=== PATIENT | male | born 1965 | race Asian ===

== ENCOUNTER 2017-02-25 08:03 | Emergency (ER) | payer MEDICAID ==
[~2017-02-25] VITALS: Ht 182.9 cm; Wt 101.0 kg
[~2017-02-25 08:03] MED LIST: ASPI-1035 PO; ATOR20TA PO; CELL5 PO; CHOL100026 PO; COREG PO; FAMO-134 PO; FISH OIL PO; NIFE60TA35 PO; P20 PO
[2017-02-25] MEDS ORDERED: LIDOCAINE HCL 1% 20ML VIAL (Pyxis) INJ INFIL ONE (10:15)
[2017-02-25 12:28] VITALS: BP 134/81
== END 2017-02-25 12:33 | disposition home or self-care (01) ==
LOC: ER 08:18
DX: T82.49XA Other complication of vascular dialysis catheter, initial encounter (principal); R07.89 Other chest pain; I13.10 Hypertensive heart and chronic kidney disease without heart failure, with stage 1 through stage 4 chronic kidney disease, or unspecified chronic kidney disease; N18.9 Chronic kidney disease, unspecified; J44.9 Chronic obstructive pulmonary disease, unspecified; E78.00 Pure hypercholesterolemia, unspecified; Z79.82 Long term (current) use of aspirin; Z79.899 Other long term (current) drug therapy; Z99.2 Dependence on renal dialysis
CPT/HCPCS: 71010; 93005; 99284; J3490; X7700; Z7610; 99283

== ENCOUNTER 2017-03-21 18:49 | Emergency (ER) | payer MEDICAID ==
[~2017-03-21] VITALS: Ht 182.9 cm; Wt 100.0 kg
[2017-03-21] MEDS ORDERED: ONDANSETRON HCL 4MG/2ML VIAL IV STA (21:43)
[2017-03-21] MEDS ORDERED: MORPHINE SULFATE 4 MG/ML CPJ (NOT FOR IM USE) IV STA (21:43)
[2017-03-21 22:05] LABS: BASOPHILS % 0.4 % (0.0-2.0); HEMOGLOBIN. 15.3 g/dL (14.0-18.0); LYMPHOCYTES % 13.9 % (20.0-50.0); MEAN CORPUSCULAR HGB CONC 31.9 g/dL (31.0-37.0); MEAN CORPUSCULAR VOLUME 84.5 fL (80.0-94.0); MEAN PLATELET VOLUME 7.7 fl (7.4-10.4); MONOCYTES % 11.2 % (2.0-8.0); NEUTROPHILS % 72.5 % (40.0-76.0); PLATELET 198 x1000/uL (130-400); RED BLOOD CELL COUNT 5.68 mill/uL (4.7-6.1); RED CELL DISTRIBUTION WIDTH 17.2 % (11.6-14.6); WHITE BLOOD COUNT 12.1 x1000/uL (4.5-11.0)
[2017-03-21 22:07] LABS: CHLORIDE 100 mEq/L (98-107); INDEX HEMOLYSI 1 (1-3); INDEX ICTERIC 1 (1-4); INDEX LIPEMIC 1 (1-3)
[2017-03-21 22:09] LABS: PROTHROMBIN TIME 10.5 sec
[2017-03-21 22:16] LABS: ALANINE AMINOTRANSFERASE 39 IU/L (13-61); ALBUMIN 3.3 g/dL (3.4-5.0); ANION GAP 15; CALCIUM 9.3 mg/dL (8.5-10.1); CARBON DIOXIDE 29 mEq/L (21-32); UREA NITROGEN BLOOD 18 mg/dL (7-21); URIC ACID 5.6 mg/dL (2.6-7.2); eGFR 9 mL/min (>60)
[2017-03-21] MEDS ORDERED: PREDNISONE 20MG TABLET PO ONE (23:15)
[2017-03-21 23:30] VITALS: BP 129/83
== END 2017-03-22 02:48 | disposition home or self-care (01) ==
LOC: ER 18:50
DX: M13.0 Polyarthritis, unspecified (principal); I12.0 Hypertensive chronic kidney disease with stage 5 chronic kidney disease or end stage renal disease; N18.6 End stage renal disease; Z99.2 Dependence on renal dialysis; Z79.82 Long term (current) use of aspirin; Z79.899 Other long term (current) drug therapy
CPT/HCPCS: 36415; 73080; 73110; 80053; 83605; 84550; 85025; 85610; 85651; 86140; 93971; 96374; 96375; 99285; J2270; J2405; J7512; Z7610

== ENCOUNTER 2017-04-05 19:34 | Emergency (ER) | payer MEDICAID ==
[~2017-04-05] VITALS: Ht 182.9 cm; Wt 100.0 kg
[2017-04-05 22:54] LABS: BASOPHILS % 0.6 % (0.0-2.0); EOSINOPHILS % 3.4 % (0.0-5.0); HEMATOCRIT. 44.2 % (42.0-52.0); LYMPHOCYTES % 19.5 % (20.0-50.0); MEAN CORPUSCULAR HGB CONC 31.6 g/dL (31.0-37.0); MEAN CORPUSCULAR VOLUME 82.4 fL (80.0-94.0); MEAN PLATELET VOLUME 8.2 fl (7.4-10.4); MONOCYTES % 9.4 % (2.0-8.0); NEUTROPHILS % 67.1 % (40.0-76.0); PLATELET 215 x1000/uL (130-400); RED BLOOD CELL COUNT 5.37 mill/uL (4.7-6.1); RED CELL DISTRIBUTION WIDTH 16.9 % (11.6-14.6); WHITE BLOOD COUNT 11.2 x1000/uL (4.5-11.0)
[2017-04-05 22:58] LABS: CHLORIDE 105 mEq/L (98-107); INDEX HEMOLYSI 1 (1-3); INDEX ICTERIC 1 (1-4); INDEX LIPEMIC 1 (1-3)
[2017-04-05 23:07] LABS: ALANINE AMINOTRANSFERASE 31 IU/L (13-61); ALBUMIN 3.1 g/dL (3.4-5.0); ANION GAP 12; CALCIUM 8.6 mg/dL (8.5-10.1); CARBON DIOXIDE 27 mEq/L (21-32); UREA NITROGEN BLOOD 41 mg/dL (7-21); eGFR 8 mL/min (>60)
[2017-04-05 23:14] LABS: INR 0.9; PARTIAL THROMBOPLASTIN TIME 28.1 sec (24.0-34.0); PROTHROMBIN TIME 9.9 sec
[2017-04-06 00:17] VITALS: BP 130/80
== END 2017-04-06 00:22 | disposition home or self-care (01) ==
LOC: ER 19:47
DX: T82.49XA Other complication of vascular dialysis catheter, initial encounter (principal); I12.9 Hypertensive chronic kidney disease with stage 1 through stage 4 chronic kidney disease, or unspecified chronic kidney disease; N18.9 Chronic kidney disease, unspecified; Z79.82 Long term (current) use of aspirin; Z99.2 Dependence on renal dialysis; X58.XXXA Exposure to other specified factors, initial encounter; Y93.89 Activity, other specified; Y99.8 Other external cause status; Y92.89 Other specified places as the place of occurrence of the external cause
CPT/HCPCS: 36415; 71010; 80053; 85025; 85610; 85730; 99285; Z7610

== ENCOUNTER 2017-10-18 07:31 | Emergency (ER) | payer MEDICAID ==
[~2017-10-18] VITALS: Ht 182.9 cm; Wt 93.0 kg
[~2017-10-18 07:31] MED LIST changes: -ASPI-1035 PO; +ASPI-1159 PO; -CHOL100026 PO; +CHOL100044 PO
[2017-10-18 09:11] LABS: PROTHROMBIN TIME 10.2 sec (9.4-11.6)
[2017-10-18] MEDS ORDERED: SODIUM BICARBONATE 4% (2.4MEQ) 5ML VIAL IV ONE (09:59)
[2017-10-18] MEDS ORDERED: LIDOCAINE HCL 1% 20ML VIAL (Pyxis) INJ ONE (09:59)
[2017-10-18 11:51] VITALS: BP 138/84
== END 2017-10-18 11:53 | disposition home or self-care (01) ==
LOC: ER 08:02
DX: Z45.2 Encounter for adjustment and management of vascular access device (principal); I12.0 Hypertensive chronic kidney disease with stage 5 chronic kidney disease or end stage renal disease; N18.6 End stage renal disease; Z99.2 Dependence on renal dialysis; Z79.82 Long term (current) use of aspirin
CPT/HCPCS: 36415; 36589; 85610; 99283; J3490; Z7610

== ENCOUNTER 2019-11-19 19:41 | Emergency (ER) | payer MEDICAID ==
[~2019-11-19] VITALS: Ht 182.9 cm; Wt 98.0 kg
[~2019-11-19 19:41] MED LIST changes: -ASPI-1159 PO; +ASPI-1393 PO; -CELL5 PO; -NIFE60TA35 PO; -P20 PO
[2019-11-19] MEDS ORDERED: SODIUM CHLORIDE 0.9% 1000ML BAG (SEPSIS BOLUS) IV ONE (20:45)
[2019-11-19] MEDS ORDERED: LEVOFLOXACIN 750MG PREMIX 150 ML IV ONE (20:45)
[2019-11-19] MEDS ORDERED: ACETAMINOPHEN 650MG/20.3ML UDC PO ONE (21:00)
[2019-11-19] MEDS ORDERED: ONDANSETRON HCL 4MG/2ML INJ IV ONE (21:00)
[2019-11-19 22:00] LABS: BASOPHILS % 0.2 % (0.0-2.0); HEMOGLOBIN. 9.2 g/dL (14.0-18.0); LYMPHOCYTES % 7.4 % (20.0-50.0); MEAN CORPUSCULAR HEMOGLOBIN 28.1 pg (28.0-32.0); MEAN PLATELET VOLUME 8.9 fl (7.4-10.4); MONOCYTES % 3.8 % (2.0-8.0); NEUTROPHILS % 88.6 % (40.0-76.0); PLATELET 94 x1000/uL (130-400); RED BLOOD CELL COUNT 3.26 mill/uL (4.7-6.1); RED CELL DISTRIBUTION WIDTH 13.8 % (11.6-14.6)
[2019-11-19 22:06] LABS: CHLORIDE 99 mEq/L (98-107); INR 1.4; PROTHROMBIN TIME 14.3 sec (9.6-11.0)
[2019-11-19 22:13] LABS: BG BILEVEL POS AIRWAY PRESSURE 15/5; BG CARBOXYHEMOGLOBIN 0.3 % (0.5-1.5); BG DEOXYHEMOGLOBIN 5.8 % (0.0-5.0); BG FRACTION INSPIRED OXYGEN 50; BG HCO3 ACT 24.1 mmol/L (22.0-26.0); BG METHEMOGLOBIN 0.3 % (0.0-1.5); BG OXYGEN SATURATION 94.2 % (92.0-98.5); BG OXYHEMOGLOBIN 93.6 % (94.0-97.0); BG PCO2 32.9 mmHg (35.0-45.0); BG PH 7.483 (7.350-7.450); BG PO2 74.2 mmHg (75.0-100.0); BG SAMPLE SITE RIGHT RADIAL; BG TOTAL HEMOGLOBIN 9.8 g/dL (12.0-18.0); BG VENT MODE MASK - BIPAP; BG VENT RATE 12 set
[2019-11-19] MEDS ORDERED: HEPARIN 5000 UNITS/ML VIAL IV NR (22:45)
[2019-11-19] MEDS ORDERED: ASPIRIN 81MG TABLET PO NR (22:45)
[2019-11-19 23:00] VITALS: BP 98/54
== END 2019-11-20 00:08 | disposition short-term general hospital (02) ==
LOC: ER 19:41 → CANBEDREQ 11-20 01:33
DX: I21.3 ST elevation (STEMI) myocardial infarction of unspecified site (principal); J96.90 Respiratory failure, unspecified, unspecified whether with hypoxia or hypercapnia; R50.9 Fever, unspecified; R74.0 Nonspecific elevation of levels of transaminase and lactic acid dehydrogenase [LDH]; J81.1 Chronic pulmonary edema; E78.00 Pure hypercholesterolemia, unspecified; D64.9 Anemia, unspecified; I12.0 Hypertensive chronic kidney disease with stage 5 chronic kidney disease or end stage renal disease; E11.22 Type 2 diabetes mellitus with diabetic chronic kidney disease; N18.6 End stage renal disease; Z99.2 Dependence on renal dialysis; Z79.82 Long term (current) use of aspirin
CPT/HCPCS: 36415; 36600; 71045; 80053; 82375; 82805; 83605; 83880; 84145; 84484; 85025; 85610; 87040; 93005; 94660; 96365; 96366; 96375; 99291; J1644; J1956; J2405; J7030; Z7610

== ENCOUNTER 2022-10-08 10:16 | Inpatient (IN) | payer MEDICAID ==
[~2022-10-08] VITALS: Ht 182.9 cm; Wt 80.1 kg
[~2022-10-08 10:16] MED LIST changes: -ASPI-1393 PO; +ASPI-1497 PO
[2022-10-08] MEDS ORDERED: SODIUM CHLORIDE 0.9% 1000ML BAG (SEPSIS BOLUS) IV ONE (11:30)
[2022-10-08] MEDS ORDERED: ACETAMINOPHEN 325MG TABLET PO ONE (11:30)
[2022-10-08] MEDS ORDERED: VANCOMYCIN 1G PREMIX 200 ML IV ONE (11:30)
[2022-10-08] MEDS ORDERED: PIPERACILLIN/TAZ 3.375G PREMIX 50 ML IV ONE (11:30)
[2022-10-08] MEDS ORDERED: OSELTAMIVIR 75MG CAPSULE PO ONE (11:30)
[2022-10-08 11:46] LABS: BG BASE EXCESS 4.6 mmol/L (-2.0-2.0); BG CARBOXYHEMOGLOBIN 0.3 % (0.5-1.5); BG DEOXYHEMOGLOBIN 1.7 % (0.0-5.0); BG FRACTION INSPIRED OXYGEN 100; BG HCO3 ACT 28.9 mmol/L (22.0-26.0); BG METHEMOGLOBIN 0.7 % (0.0-1.5); BG OXYGEN SATURATION 98.3 % (92.0-98.5); BG OXYHEMOGLOBIN 97.3 % (94.0-97.0); BG PCO2 41.7 mmHg (35.0-45.0); BG PH 7.458 (7.350-7.450); BG PO2 151.6 mmHg (75.0-100.0); BG SAMPLE SITE RIGHT BRACHIAL; BG TOTAL HEMOGLOBIN 9.5 g/dL (12.0-18.0); BG VENT MODE MASK - NRB
[2022-10-08 12:10] LABS: CHLORIDE 96 mEq/L (98-107)
[2022-10-08 12:16] LABS: BASOPHILS % 0.6 % (0.0-2.0); EOSINOPHILS % 1.9 % (0.0-5.0); HEMATOCRIT. 27.5 % (42.0-52.0); LYMPHOCYTES % 7.9 % (20.0-50.0); MEAN CORPUSCULAR HEMOGLOBIN 28.4 pg (28.0-32.0); MEAN CORPUSCULAR VOLUME 86.6 fL (80.0-94.0); MONOCYTES % 8.5 % (2.0-8.0); NEUTROPHILS % 81.1 % (40.0-76.0); PLATELET 72 x1000/uL (130-400); RED BLOOD CELL COUNT 3.17 mill/uL (4.7-6.1); RED CELL DISTRIBUTION WIDTH 15.4 % (11.6-14.6)
[2022-10-08 12:19] LABS: INR 1.1; PROTHROMBIN TIME 11.9 sec (9.6-11.0)
[2022-10-08] MEDS ORDERED: ASPIRIN 81MG TABLET PO ONE (13:00)
[2022-10-08] MEDS ORDERED: ASPIRIN 81MG TABLET PO NR (13:00)
[2022-10-08] MEDS ORDERED: DEXAMETHASONE 10 MG/ML VIAL IV ONE (15:30)
[2022-10-08] MEDS ORDERED: DEXAMETHASONE 10 MG/ML VIAL IV NR (15:30)
[2022-10-08] MEDS ORDERED: CEFTRIAXONE 1 G PREMIX 50 ML IV SCH ×2 (16:00→18:30)
[2022-10-08 17:30] VITALS: BP 120/61
[2022-10-08 18:00] VITALS: BP 120/61
[2022-10-08] MEDS ORDERED: AZITHROMYCIN 500MG/250ML 250 ML IV SCH (18:30)
[2022-10-08 20:00] VITALS: BP 101/52
[2022-10-08] MEDS ORDERED: AZITHROMYCIN 500MG in DEXTROSE 5% WATER 250ML IV SCH (20:00)
[2022-10-08] MEDS ORDERED: HEPARIN 5000 UNITS/ML VIAL SUBCUT SCH (21:00)
[2022-10-08] MEDS: DOXYCYCLINE HYCLATE 100MG CAPSULE PO SCH (22:22)
[2022-10-09] VITALS: BP 102/46
[2022-10-09 04:00] VITALS: BP 119/61
[2022-10-09 05:29] LABS: MEAN CORPUSCULAR HEMOGLOBIN 28.3 pg (28.0-32.0); MEAN CORPUSCULAR VOLUME 85.1 fL (80.0-94.0); PLATELET 77 x1000/uL (130-400); RED BLOOD CELL COUNT 3.18 mill/uL (4.7-6.1); RED CELL DISTRIBUTION WIDTH 15.1 % (11.6-14.6)
[2022-10-09] MEDS ORDERED: CALC667T6 MT (07:48)
[2022-10-09] MEDS ORDERED: LOSA25TA26 MT (07:48)
[2022-10-09] MEDS ORDERED: NIFE20CA MT (07:48)
[2022-10-09 08:00] VITALS: BP 128/65
[2022-10-09 08:15] LABS: CHLORIDE 100 mEq/L (98-107)
[2022-10-09] MEDS: DOXYCYCLINE HYCLATE 100MG CAPSULE PO SCH ×2 (08:41→16:28)
[2022-10-09] MEDS: CEFTRIAXONE 1,000 MG in DEXTROSE 5% WATER 50 ML IV SCH (08:41)
[2022-10-09 11:01] LABS: PLATELET ESTIMATE DECREASED
[2022-10-09 12:00] VITALS: BP 133/66
[2022-10-09 16:00] VITALS: BP 155/68
[2022-10-09] MEDS: GUAIFENESIN 200MG/10ML SUGAR FREE UDC PO PRN (16:28)
[2022-10-09] MEDS: ACETAMINOPHEN 325MG TABLET PO PRN (17:44)
[2022-10-09 20:00] VITALS: BP 154/70
[2022-10-09] MEDS ORDERED: INFLUENZA VACCINE 05/PF 0.5 ML SYRINGE IM ONE (21:00)
[2022-10-09] MEDS ORDERED: PNEUMOCOCCAL 23-VAL P-SAC VAC 0.5 ML IM ONE (21:00)
[2022-10-09] MEDS: DEXAMETHASONE 6MG TABLET PO SCH (21:16)
[2022-10-10] VITALS (18 sets, daily range): BP systolic 115–179; BP diastolic 63–83
[2022-10-10] MEDS: GUAIFENESIN 200MG/10ML SUGAR FREE UDC PO PRN ×3 (01:32→18:43)
[2022-10-10] MEDS: CLONIDINE 0.2MG TABLET PO PRN ×2 (03:06→21:17)
[2022-10-10] MEDS: CEFTRIAXONE 1,000 MG in DEXTROSE 5% WATER 50 ML IV SCH (08:59)
[2022-10-10] MEDS: DOXYCYCLINE HYCLATE 100MG CAPSULE PO SCH ×2 (09:00→17:00)
[2022-10-10] MEDS: DEXAMETHASONE 6MG TABLET PO SCH (09:01)
[2022-10-10] MEDS: EPOETIN ALFA-EPBX 4,000 UNIT/ML VIAL SUBCUT SCH (21:17)
[2022-10-10] MEDS: GUAIFENESIN-DM 200MG-20MG/10ML UDC PO PRN (22:56)
[2022-10-11] VITALS: BP 171/71
[2022-10-11] MEDS: CLONIDINE 0.2MG TABLET PO PRN (01:03)
[2022-10-11 04:00] VITALS: BP 155/67
[2022-10-11] MEDS: GUAIFENESIN-DM 200MG-20MG/10ML UDC PO PRN ×5 (04:11→22:47)
[2022-10-11] MEDS: DEXAMETHASONE 6MG TABLET PO SCH (07:35)
[2022-10-11] MEDS: BENZONATATE 100MG CAPSULE PO PRN ×2 (07:35→16:00)
[2022-10-11] MEDS: CEFTRIAXONE 1,000 MG in DEXTROSE 5% WATER 50 ML IV SCH (07:35)
[2022-10-11] MEDS: DOXYCYCLINE HYCLATE 100MG CAPSULE PO SCH ×2 (07:35→16:02)
[2022-10-11] MEDS: ALBUTEROL 6.7GM HFA INHALER ORI PRN ×2 (07:36→14:07)
[2022-10-11 08:00] VITALS: BP 160/63
[2022-10-11] MEDS ORDERED: NIFEDIPINE XL 30MG TAB PO SCH (10:00)
[2022-10-11] MEDS: ACETAMINOPHEN 325MG TABLET PO PRN ×2 (10:04→17:45)
[2022-10-11] MEDS: LOSARTAN POTASSIUM 25 MG TABLET PO SCH (10:04)
[2022-10-11 12:00] VITALS: BP 148/64
[2022-10-11 16:00] VITALS: BP 133/55
[2022-10-11 20:00] VITALS: BP 157/55
[2022-10-11 23:09] LABS: HEPATITIS B SURFACE ANTIGEN NEGATIVE
[2022-10-12] VITALS (10 sets, daily range): BP systolic 123–165; BP diastolic 54–88
[2022-10-12] MEDS: BENZONATATE 100MG CAPSULE PO PRN ×3 (01:12→21:36)
[2022-10-12] MEDS: GUAIFENESIN-DM 200MG-20MG/10ML UDC PO PRN ×2 (03:42→09:04)
[2022-10-12] MEDS: NIFEDIPINE XL 60MG TAB PO SCH ×2 (08:59→16:14)
[2022-10-12] MEDS: LOSARTAN POTASSIUM 25 MG TABLET PO SCH ×2 (08:59→16:14)
[2022-10-12] MEDS: CEFTRIAXONE 1,000 MG in DEXTROSE 5% WATER 50 ML IV SCH (09:03)
[2022-10-12] MEDS: DEXAMETHASONE 6MG TABLET PO SCH (09:04)
[2022-10-12] MEDS: DOXYCYCLINE HYCLATE 100MG CAPSULE PO SCH ×2 (09:04→16:14)
[2022-10-12] MEDS: ALBUTEROL 6.7GM HFA INHALER ORI PRN ×2 (09:04→16:18)
[2022-10-12] MEDS: GUAIFENESIN/CODEINE 200-20MG/10ML UDC PO PRN ×2 (16:14→22:53)
[2022-10-12] MEDS: EPOETIN ALFA-EPBX 4,000 UNIT/ML VIAL SUBCUT SCH (22:53)
[2022-10-13] VITALS: BP 116/55
[2022-10-13 04:00] VITALS: BP 113/45
[2022-10-13] MEDS: GUAIFENESIN/CODEINE 200-20MG/10ML UDC PO PRN ×2 (05:56→21:31)
[2022-10-13] MEDS: DOXYCYCLINE HYCLATE 100MG CAPSULE PO SCH ×2 (08:55→17:00)
[2022-10-13] MEDS: DEXAMETHASONE 6MG TABLET PO SCH (08:55)
[2022-10-13] MEDS: LOSARTAN POTASSIUM 25 MG TABLET PO SCH (08:56)
[2022-10-13] MEDS: NIFEDIPINE XL 60MG TAB PO SCH (08:56)
[2022-10-13] MEDS: CEFTRIAXONE 1,000 MG in DEXTROSE 5% WATER 50 ML IV SCH (08:56)
[2022-10-13 12:00] VITALS: BP_SYST 134; BP_SYST 167; BP_DIAS 55; BP_DIAS 56
[2022-10-13 16:00] VITALS: BP 120/53
[2022-10-13 20:00] VITALS: BP 126/55
[2022-10-13] MEDS: BENZONATATE 100MG CAPSULE PO PRN (21:31)
[2022-10-14] VITALS (14 sets, daily range): BP systolic 118–183; BP diastolic 45–89
[2022-10-14] MEDS: GUAIFENESIN/CODEINE 200-20MG/10ML UDC PO PRN ×2 (05:16→21:08)
[2022-10-14] MEDS: BENZONATATE 100MG CAPSULE PO PRN ×2 (05:24→23:33)
[2022-10-14] MEDS: LOSARTAN POTASSIUM 25 MG TABLET PO SCH ×2 (09:00→23:35)
[2022-10-14] MEDS: NIFEDIPINE XL 60MG TAB PO SCH ×2 (09:00→23:35)
[2022-10-14] MEDS: DEXAMETHASONE 6MG TABLET PO SCH (09:14)
[2022-10-14] MEDS: CEFTRIAXONE 1,000 MG in DEXTROSE 5% WATER 50 ML IV SCH (10:42)
[2022-10-14] MEDS: DOXYCYCLINE HYCLATE 100MG CAPSULE PO SCH ×2 (10:47→21:11)
[2022-10-14] MEDS: CLONIDINE 0.2MG TABLET PO PRN (21:11)
[2022-10-14] MEDS: EPOETIN ALFA-EPBX 4,000 UNIT/ML VIAL SUBCUT SCH (22:21)
[2022-10-15] VITALS: BP 180/79
[2022-10-15 04:00] VITALS: BP 133/57
[2022-10-15] MEDS: GUAIFENESIN/CODEINE 200-20MG/10ML UDC PO PRN ×2 (04:42→23:15)
[2022-10-15 08:00] VITALS: BP 123/57
[2022-10-15] MEDS: DEXAMETHASONE 6MG TABLET PO SCH (09:20)
[2022-10-15] MEDS: LOSARTAN POTASSIUM 25 MG TABLET PO SCH (09:20)
[2022-10-15] MEDS: NIFEDIPINE XL 60MG TAB PO SCH (09:21)
[2022-10-15] MEDS: DOXYCYCLINE HYCLATE 100MG CAPSULE PO SCH ×2 (09:24→16:35)
[2022-10-15 12:00] VITALS: BP 110/46
[2022-10-15 16:00] VITALS: BP 121/83
[2022-10-15 20:00] VITALS: BP 122/54
[2022-10-16] VITALS (13 sets, daily range): BP systolic 122–167; BP diastolic 55–86
[2022-10-16 01:48] LABS: HEPATITIS B SURFACE ANTIGEN NEGATIVE
[2022-10-16] MEDS: DEXAMETHASONE 4MG TABLET PO SCH (08:48)
[2022-10-16] MEDS: NIFEDIPINE XL 60MG TAB PO SCH (08:48)
[2022-10-16] MEDS: LOSARTAN POTASSIUM 25 MG TABLET PO SCH (08:48)
[2022-10-16] MEDS: CLONIDINE 0.2MG TABLET PO PRN (17:02)
[2022-10-17] VITALS: BP 173/69
[2022-10-17] MEDS: CLONIDINE 0.2MG TABLET PO PRN ×2 (00:30→06:11)
[2022-10-17 04:00] VITALS: BP 162/62
[2022-10-17 08:00] VITALS: BP 138/68
[2022-10-17] MEDS: NIFEDIPINE XL 60MG TAB PO SCH (08:46)
[2022-10-17] MEDS: LOSARTAN POTASSIUM 25 MG TABLET PO SCH (08:46)
[2022-10-17] MEDS: DEXAMETHASONE 4MG TABLET PO SCH (08:47)
[2022-10-17 12:00] VITALS: BP 112/52
[2022-10-17 16:00] VITALS: BP 116/50
[2022-10-17 17:59] LABS: MEAN CORPUSCULAR VOLUME 86.6 fL (80.0-94.0); PLATELET 185 x1000/uL (130-400); RED CELL DISTRIBUTION WIDTH 15.3 % (11.6-14.6)
[2022-10-17 18:15] LABS: HEMOGLOBIN 6.7 g/dL (14.0-18.0)
[2022-10-17 18:16] LABS: HEMATOCRIT 20.8 % (42.0-52.0)
[2022-10-17 20:00] VITALS: BP 105/60
[2022-10-17] MEDS: FAMOTIDINE 20MG TABLET PO SCH (20:26)
[2022-10-18] VITALS (18 sets, daily range): BP systolic 105–148; BP diastolic 44–76
[2022-10-18] MEDS: DEXAMETHASONE 4MG TABLET PO SCH (08:27)
[2022-10-18] MEDS: LOSARTAN POTASSIUM 25 MG TABLET PO SCH (08:28)
[2022-10-18] MEDS: NIFEDIPINE XL 60MG TAB PO SCH (08:28)
[2022-10-18 21:20] LABS: MEAN CORPUSCULAR HEMOGLOBIN 28.8 pg (28.0-32.0); MEAN PLATELET VOLUME 7.9 fl (7.4-10.4); PLATELET 240 x1000/uL (130-400)
[2022-10-18] MEDS: FAMOTIDINE 20MG TABLET PO SCH (21:24)
[2022-10-18] MEDS: EPOETIN ALFA-EPBX 10,000 UNIT/ML VIAL SUBCUT SCH (21:24)
[2022-10-18 22:11] LABS: HEMATOCRIT. 19.8 % (42.0-52.0); HEMOGLOBIN. 6.6 g/dL (14.0-18.0)
[2022-10-18 22:36] LABS: PLATELET ESTIMATE NORMAL
[2022-10-18 23:58] LABS: MEAN CORPUSCULAR HEMOGLOBIN 29.4 pg (28.0-32.0); MEAN CORPUSCULAR VOLUME 87.5 fL (80.0-94.0); PLATELET 187 x1000/uL (130-400); RED BLOOD CELL COUNT 1.82 mill/uL (4.7-6.1); RED CELL DISTRIBUTION WIDTH 16.1 % (11.6-14.6)
[2022-10-19] VITALS (16 sets, daily range): BP systolic 107–126; BP diastolic 37–66
[2022-10-19 00:18] LABS: HEMOGLOBIN 5.4 g/dL (14.0-18.0)
[2022-10-19 00:19] LABS: HEMATOCRIT 15.9 % (42.0-52.0)
[2022-10-19] MEDS: DEXAMETHASONE 4MG TABLET PO SCH (08:44)
[2022-10-19] MEDS: NIFEDIPINE XL 60MG TAB PO SCH (08:44)
[2022-10-19] MEDS: LOSARTAN POTASSIUM 25 MG TABLET PO SCH (08:44)
[2022-10-19 11:04] LABS: BASOPHILS % 0.3 % (0.0-2.0); EOSINOPHILS % 0.2 % (0.0-5.0); HEMATOCRIT. 22.9 % (42.0-52.0); HEMOGLOBIN. 7.5 g/dL (14.0-18.0); LYMPHOCYTES % 10.4 % (20.0-50.0); MEAN CORPUSCULAR HEMOGLOBIN 29.4 pg (28.0-32.0); MEAN CORPUSCULAR VOLUME 89.6 fL (80.0-94.0); MEAN PLATELET VOLUME 7.9 fl (7.4-10.4); MONOCYTES % 7.7 % (2.0-8.0); NEUTROPHILS % 81.4 % (40.0-76.0); PLATELET 196 x1000/uL (130-400); RED BLOOD CELL COUNT 2.56 mill/uL (4.7-6.1); RED CELL DISTRIBUTION WIDTH 16.9 % (11.6-14.6)
[2022-10-19 11:13] LABS: INR 1.1; PROTHROMBIN TIME 11.4 sec (9.6-11.0)
[2022-10-19] MEDS ORDERED: FAMOTIDINE 20MG/2ML VIAL IV SCH (18:30)
[2022-10-19 22:25] LABS: HEPATITIS B SURFACE ANTIGEN NEGATIVE
[2022-10-20] VITALS (18 sets, daily range): BP systolic 119–144; BP diastolic 52–71
[2022-10-20] MEDS: PANTOPRAZOLE SODIUM 40 MG/VIAL IV SCH ×2 (00:36→09:03)
[2022-10-20 08:04] LABS: BASOPHILS % 0.3 % (0.0-2.0); EOSINOPHILS % 0.2 % (0.0-5.0); LYMPHOCYTES % 9.5 % (20.0-50.0); MEAN CORPUSCULAR HEMOGLOBIN 29.2 pg (28.0-32.0); MEAN CORPUSCULAR VOLUME 87.8 fL (80.0-94.0); MEAN PLATELET VOLUME 7.3 fl (7.4-10.4); MONOCYTES % 6.4 % (2.0-8.0); NEUTROPHILS % 83.6 % (40.0-76.0); PLATELET 214 x1000/uL (130-400); RED BLOOD CELL COUNT 2.35 mill/uL (4.7-6.1); RED CELL DISTRIBUTION WIDTH 17.2 % (11.6-14.6)
[2022-10-20 08:08] LABS: HEMATOCRIT. 20.6 % (42.0-52.0); HEMOGLOBIN. 6.9 g/dL (14.0-18.0)
[2022-10-20] MEDS: DEXAMETHASONE 4MG TABLET PO SCH (09:03)
[2022-10-20] MEDS: LOSARTAN POTASSIUM 25 MG TABLET PO SCH (09:03)
[2022-10-20] MEDS: NIFEDIPINE XL 60MG TAB PO SCH (09:04)
[2022-10-20 15:43] LABS: TOTAL IRON BINDING CAPACITY 197 ug/dL (250-450)
[2022-10-20 20:47] LABS: HEMATOCRIT. 23.7 % (42.0-52.0); HEMOGLOBIN. 8.1 g/dL (14.0-18.0); MEAN CORPUSCULAR VOLUME 88.3 fL (80.0-94.0); PLATELET 212 x1000/uL (130-400); RED BLOOD CELL COUNT 2.68 mill/uL (4.7-6.1); RED CELL DISTRIBUTION WIDTH 16.9 % (11.6-14.6)
[2022-10-20] MEDS: EPOETIN ALFA-EPBX 10,000 UNIT/ML VIAL SUBCUT SCH (21:26)
[2022-10-21 04:00] VITALS: BP_SYST 124; BP_SYST 134; BP_DIAS 54; BP_DIAS 75
[2022-10-21 08:00] VITALS: BP 159/65
[2022-10-21] MEDS: PANTOPRAZOLE SODIUM 40 MG/VIAL IV SCH ×2 (10:03→20:51)
[2022-10-21] MEDS: LOSARTAN POTASSIUM 25 MG TABLET PO SCH (10:04)
[2022-10-21] MEDS: DEXAMETHASONE 4MG TABLET PO SCH (10:04)
[2022-10-21] MEDS: NIFEDIPINE XL 60MG TAB PO SCH (10:04)
[2022-10-21 10:46] LABS: PLATELET ESTIMATE NORMAL
[2022-10-21 12:00] VITALS: BP 136/59
[2022-10-21 14:00] VITALS: BP 132/62
[2022-10-21 17:39] LABS: HEMATOCRIT. 24.8 % (42.0-52.0); HEMOGLOBIN. 8.2 g/dL (14.0-18.0); MEAN CORPUSCULAR HEMOGLOBIN 29.9 pg (28.0-32.0); MEAN CORPUSCULAR VOLUME 90.6 fL (80.0-94.0); MEAN PLATELET VOLUME 7.2 fl (7.4-10.4); PLATELET 188 x1000/uL (130-400); RED BLOOD CELL COUNT 2.74 mill/uL (4.7-6.1); RED CELL DISTRIBUTION WIDTH 17.4 % (11.6-14.6)
[2022-10-21 18:06] LABS: PLATELET ESTIMATE NORMAL
[2022-10-21 18:07] LABS: FERRITIN 823 ng/mL (22-322)
[2022-10-21 18:18] LABS: VITAMIN B12 SERUM 886 pg/mL (211-911)
[2022-10-21 20:00] VITALS: BP 134/56
[2022-10-22] VITALS (15 sets, daily range): BP systolic 129–179; BP diastolic 32–85
[2022-10-22 07:51] LABS: BASOPHILS % 0.3 % (0.0-2.0); EOSINOPHILS % 0.2 % (0.0-5.0); HEMATOCRIT. 21.2 % (42.0-52.0); HEMOGLOBIN. 7.1 g/dL (14.0-18.0); LYMPHOCYTES % 8.9 % (20.0-50.0); MEAN CORPUSCULAR HEMOGLOBIN 30.2 pg (28.0-32.0); MEAN CORPUSCULAR VOLUME 90.1 fL (80.0-94.0); MONOCYTES % 8.9 % (2.0-8.0); NEUTROPHILS % 81.7 % (40.0-76.0); PLATELET 163 x1000/uL (130-400); RED BLOOD CELL COUNT 2.36 mill/uL (4.7-6.1); RED CELL DISTRIBUTION WIDTH 18.1 % (11.6-14.6)
[2022-10-22 08:08] LABS: INR 1.1; PROTHROMBIN TIME 11.4 sec (9.6-11.0)
[2022-10-22] MEDS: DEXAMETHASONE 4MG TABLET PO SCH (09:00)
[2022-10-22] MEDS: PANTOPRAZOLE SODIUM 40 MG/VIAL IV SCH ×2 (09:00→21:37)
[2022-10-22] MEDS: NIFEDIPINE XL 60MG TAB PO SCH (09:00)
[2022-10-22] MEDS: LOSARTAN POTASSIUM 25 MG TABLET PO SCH (09:00)
[2022-10-22] MEDS: CLONIDINE 0.2MG TABLET PO PRN (13:24)
[2022-10-22] MEDS: MULTIVITAMINS,THER W-MINERALS TABLET PO SCH (13:24)
[2022-10-22] MEDS: EPOETIN ALFA-EPBX 10,000 UNIT/ML VIAL SUBCUT SCH (21:37)
[2022-10-23] VITALS (9 sets, daily range): BP systolic 114–172; BP diastolic 51–75
[2022-10-23] MEDS: CLONIDINE 0.2MG TABLET PO PRN (05:37)
[2022-10-23 08:19] LABS: EOSINOPHILS % 1.1 % (0.0-5.0); HEMATOCRIT. 22.1 % (42.0-52.0); HEMOGLOBIN. 7.5 g/dL (14.0-18.0); LYMPHOCYTES % 9.3 % (20.0-50.0); MEAN CORPUSCULAR HEMOGLOBIN 30.6 pg (28.0-32.0); MEAN CORPUSCULAR VOLUME 90.7 fL (80.0-94.0); MEAN PLATELET VOLUME 7.4 fl (7.4-10.4); MONOCYTES % 11.3 % (2.0-8.0); NEUTROPHILS % 77.3 % (40.0-76.0); PLATELET 136 x1000/uL (130-400); RED BLOOD CELL COUNT 2.44 mill/uL (4.7-6.1); RED CELL DISTRIBUTION WIDTH 18.3 % (11.6-14.6)
[2022-10-23 08:41] LABS: PROTHROMBIN TIME 10.9 sec (9.6-11.0)
[2022-10-23] MEDS: DEXAMETHASONE 4MG TABLET PO SCH (09:00)
[2022-10-23] MEDS: NIFEDIPINE XL 60MG TAB PO SCH ×2 (09:00→11:19)
[2022-10-23] MEDS: PANTOPRAZOLE SODIUM 40 MG/VIAL IV SCH (11:18)
[2022-10-23] MEDS: MULTIVITAMINS,THER W-MINERALS TABLET PO SCH (11:18)
[2022-10-23] MEDS: LOSARTAN POTASSIUM 25 MG TABLET PO SCH (11:19)
[2022-10-23] MEDS ORDERED: PROT40 PO (11:29)
[2022-10-23] MEDS ORDERED: ALBU6.7H3 INH (11:29)
== END 2022-10-23 15:00 | disposition home or self-care (01) | DRG 720 ==
LOC: ER 10:51 → 7EST 15:26 → ENRESERV 16:14 → 7EST 10-18 16:53
PROVIDERS: ADMIT Internal Medicine; ATTEND Internal Medicine
PROC: 5A1D70Z Performance of Urinary Filtration, Intermittent, Less than 6 Hours Per Day (ICD-10-PCS; principal; 2022-10-10)
PROC: 5A1D70Z Performance of Urinary Filtration, Intermittent, Less than 6 Hours Per Day (ICD-10-PCS; 2022-10-12)
PROC: 5A1D70Z Performance of Urinary Filtration, Intermittent, Less than 6 Hours Per Day (ICD-10-PCS; 2022-10-14)
PROC: 5A1D70Z Performance of Urinary Filtration, Intermittent, Less than 6 Hours Per Day (ICD-10-PCS; 2022-10-16)
PROC: 5A1D70Z Performance of Urinary Filtration, Intermittent, Less than 6 Hours Per Day (ICD-10-PCS; 2022-10-18)
PROC: 30233N1 Transfusion of Nonautologous Red Blood Cells into Peripheral Vein, Percutaneous Approach (ICD-10-PCS; 2022-10-18)
PROC: 5A1D70Z Performance of Urinary Filtration, Intermittent, Less than 6 Hours Per Day (ICD-10-PCS; 2022-10-20)
PROC: 5A1D70Z Performance of Urinary Filtration, Intermittent, Less than 6 Hours Per Day (ICD-10-PCS; 2022-10-22)
DX: A41.89 Other specified sepsis (principal); J96.01 Acute respiratory failure with hypoxia; J12.82 Pneumonia due to coronavirus disease 2019; U07.1 COVID-19; E44.1 Mild protein-calorie malnutrition; K57.91 Diverticulosis of intestine, part unspecified, without perforation or abscess with bleeding; D69.6 Thrombocytopenia, unspecified; N18.6 End stage renal disease; E11.22 Type 2 diabetes mellitus with diabetic chronic kidney disease; I12.0 Hypertensive chronic kidney disease with stage 5 chronic kidney disease or end stage renal disease; M10.9 Gout, unspecified; D63.8 Anemia in other chronic diseases classified elsewhere; E78.00 Pure hypercholesterolemia, unspecified; E78.5 Hyperlipidemia, unspecified; Z99.2 Dependence on renal dialysis; Z91.15 Patient's noncompliance with renal dialysis; Z68.23 Body mass index [BMI] 23.0-23.9, adult
CPT/HCPCS: 36415; 36600; 71045; 80048; 80053; 82270; 82375; 82607; 82728; 82746; 82747; 82805; 83540; 83550; 83605; 83880; 84145; 84484; 85014; 85018; 85025; 85027; 85044; 85379; 85384; 86705; 86709; 86803; 86850; 86900; 86920; 87340; 87420; 87426; 87804; 90686; 90732; 90935; 93005; 93970; 99291; C9113; C9803; J0456; J0696; J0885; J1100; J2543; J3370; J7030; J7060; J8540; P9016